=== PATIENT | male | born 1995 | race African-American/Black ===

== ENCOUNTER 2024-07-21 18:35 | Emergency (ER) | payer MEDICAID, OTHER ==
[2024-07-21] MEDS ORDERED: Dexamethasone 10 MG/ML VIAL ONE (19:49)
== END 2024-07-21 19:59 | disposition home or self-care (01) ==
LOC: CSHERS 18:35
DX: J02.9 Acute pharyngitis, unspecified (principal); F17.290 Nicotine dependence, other tobacco product, uncomplicated; F15.90 Other stimulant use, unspecified, uncomplicated
CPT/HCPCS: 87081; 87430; 99283; J1100